=== PATIENT | female | born 2000 | race Caucasian/White ===

== ENCOUNTER 2023-03-28 06:33 | Day surgery (SDC) | payer MEDICAID ==
[2023-03-28 07:15] VITALS: BMI 23.4
[2023-03-28 07:55] LABS: Fetal Membranes Rupture No Membranes Rupture (No Rupture)
[2023-03-28] MEDS ORDERED: hydrALAZINE 20 MG/ML VIAL SLOW IVP PRN (08:20)
[2023-03-28 09:32] LABS: Bilirubin Neg (Negative); Blood, Urine Negative (Negative); Clarity Clear (Clear); Glucose, Urine (Dipstick) Normal (Negative); Ketone, Urine Negative (Negative); Leukocyte Negative (Negative); Nitrite Negative (Negative); Protein, Urine (Dipstick) 15 mg/dl (Neg-Trace); Specific Gravity, Urine 1.015 (1.005-1.030); Urobilinogen Normal mg/dL (Less than 2)
[2023-03-28 09:43] LABS: Bacteria/HPF Rare-Few HPF (None Seen); CAUTI Indications for Culture Pregnancy; RBC/HPF None Seen HPF (0-3); Squamous Epithelial 0-3 HPF (0-3); WBC/HPF 0-3 HPF (0-3)
[2023-03-28 09:45] LABS: Urine Culture Reflex Yes Yes
== END 2023-03-28 09:58 | disposition home or self-care (01) ==
LOC: CSHLD/OP 06:33
PROVIDERS: ATTEND Obstetrics & Gynecology
DX: Z03.71 Encounter for suspected problem with amniotic cavity and membrane ruled out (principal); O99.891 Other specified diseases and conditions complicating pregnancy; R10.30 Lower abdominal pain, unspecified; O23.43 Unspecified infection of urinary tract in pregnancy, third trimester; R35.0 Frequency of micturition; Z3A.29 29 weeks gestation of pregnancy
CPT/HCPCS: 81001; 84112; 87086; 99284

== ENCOUNTER 2023-04-24 20:36 | Day surgery (SDC) | payer MEDICAID, OTHER ==
[2023-04-24 21:23] VITALS: BMI 23.6
[2023-04-24] MEDS ORDERED: hydrALAZINE 20 MG/ML VIAL SLOW IVP PRN (21:29)
[2023-04-24 22:01] LABS: Fetal Membranes Rupture No Membranes Rupture (No Rupture)
[2023-04-24 22:29] LABS: Bilirubin Neg (Negative); Blood, Urine Negative (Negative); Clarity Clear (Clear); Glucose, Urine (Dipstick) Normal (Negative); Ketone, Urine Negative (Negative); Leukocyte Negative (Negative); Nitrite Negative (Negative); Protein, Urine (Dipstick) Negative (Neg-Trace); Specific Gravity, Urine 1.015 (1.005-1.030); Urobilinogen Normal mg/dL (Less than 2); pH, Urine 6.5 (5.0-9.0)
[2023-04-24 22:41] LABS: Bacteria/HPF None Seen HPF (None Seen); CAUTI Indications for Culture Pregnancy; RBC/HPF None Seen HPF (0-3); Squamous Epithelial 0-3 HPF (0-3); WBC/HPF 0-3 HPF (0-3)
[2023-04-24 22:43] LABS: Urine Culture Reflex Yes Yes
== END 2023-04-24 23:58 | disposition home or self-care (01) ==
LOC: CSHLD/OP 20:36
PROVIDERS: ATTEND Emergency Medicine
DX: Z03.71 Encounter for suspected problem with amniotic cavity and membrane ruled out (principal); O99.283 Endocrine, nutritional and metabolic diseases complicating pregnancy, third trimester; E03.9 Hypothyroidism, unspecified; Z3A.34 34 weeks gestation of pregnancy; Z88.8 Allergy status to other drugs, medicaments and biological substances; Z79.890 Hormone replacement therapy
CPT/HCPCS: 81001; 84112; 87086; 87480; 87510; 87660

== ENCOUNTER 2023-05-13 17:40 | Day surgery (SDC) | payer OTHER ==
[2023-05-13] MEDS: Acetaminophen 500 MG TAB PO SCH (20:55)
[2023-05-13 20:59] LABS: ALT (SGPT) 11 U/L (8-55); AST (SGOT) 17 U/L (5-34); Albumin 3.4 g/dL (3.5-5.0); Alkaline Phosphatase 139 U/L (40-100); Anion Gap 13 mmol/L (10-20); BUN (Urea Nitrogen) 7 mg/dL (7.0-18.7); Bilirubin, Total 1.3 mg/dL (0.2-1.2); Calc. Creatinine Clearance 0 mL/min (70-130); Calcium 8.6 mg/dL (7.8-10.44); Carbon Dioxide 20 mmol/L (22-29); Chloride 105 mmol/L (98-107); Estimated GFR 131; Globulin 2.6 g/dL (2.4-3.5); Glucose 77 mg/dL (70-105); Potassium 3.7 mmol/L (3.5-5.1); Sodium 134 mmol/L (136-145)
[2023-05-13 21:11] LABS: #Monocytes 0.9 10x3/uL (0.0-1.1); #Neutrophils 6.6 10x3/uL (1.5-8.4); %Basophils 0.1 % (0.0-2.0); %Eosinophils 0.2 % (0.0-6.0); %Lymphocytes 7.9 % (18.0-47.0); %Monocytes 11.1 % (0.0-10.0); %Neutrophils 79.9 % (40.0-75.0); Hematocrit 30.3 % (34.9-44.5); Hemoglobin 10.4 g/dL (12.0-15.5); Mean Corpuscular HGB CONC 34.3 g/dL (32.0-36.0); Mean Corpuscular Hemoglobin 30.6 pg (27.0-33.0); Mean Corpuscular Volume 89.1 fl (81.6-98.3); Mean Platelet Volume 9.4 fl (7.4-10.4); Platelet Count 205 10x3/uL (150-450); RBC Distribution Width 12.5 % (11.5-14.5); White Blood Cell (WBC) Count 8.3 10x3/uL (3.5-10.5)
[2023-05-13] MEDS: Metoclopramide HCl 10 MG (2 mL) VIAL IVP SCH (21:47)
[2023-05-13] MEDS: diphenhydrAMINE 50 MG/ML VIAL IVP SCH (21:47)
[2023-05-13] MEDS: Lactated Ringer's 1,000 ML IV SCH (21:58)
[2023-05-13] MEDS ORDERED: Promethazine 25 MG TAB PO PRN (23:15)
[2023-05-13] MEDS: Methocarbamol 500 MG TAB PO SCH (23:48)
== END 2023-05-14 01:32 | disposition home or self-care (01) ==
LOC: CSHLD/OP 17:40
PROVIDERS: ATTEND Student in an Organized Health Care Education/Training Program
DX: O36.8130 Decreased fetal movements, third trimester, not applicable or unspecified (principal); O99.283 Endocrine, nutritional and metabolic diseases complicating pregnancy, third trimester; E03.9 Hypothyroidism, unspecified; O99.891 Other specified diseases and conditions complicating pregnancy; R00.0 Tachycardia, unspecified; R51.9 Headache, unspecified; O99.013 Anemia complicating pregnancy, third trimester; Z3A.35 35 weeks gestation of pregnancy; Z88.8 Allergy status to other drugs, medicaments and biological substances; Z79.899 Other long term (current) drug therapy
CPT/HCPCS: 36415; 76815; 76819; 80053; 82247; 83690; 84443; 85025; 96360; 96361; 99282; J1200; J2765

== ENCOUNTER 2023-05-24 20:42 | Day surgery (SDC) | payer MEDICAID, OTHER ==
[2023-05-24 21:00] VITALS: BMI 24.9
[2023-05-24] MEDS ORDERED: Acetaminophen 500 MG TAB PO SCH (22:00)
[2023-05-24 22:12] LABS: Fetal Membranes Rupture No Membranes Rupture (No Rupture)
== END 2023-05-25 00:30 | disposition home or self-care (01) ==
LOC: CSHLD/OP 20:42
PROVIDERS: ATTEND Family Medicine
DX: O47.1 False labor at or after 37 completed weeks of gestation (principal); O99.013 Anemia complicating pregnancy, third trimester; Z03.71 Encounter for suspected problem with amniotic cavity and membrane ruled out; Z3A.38 38 weeks gestation of pregnancy; Z80.3 Family history of malignant neoplasm of breast; Z90.89 Acquired absence of other organs; Z88.8 Allergy status to other drugs, medicaments and biological substances
CPT/HCPCS: 84112; 87480; 87510; 87660; 99285

== ENCOUNTER 2023-06-05 08:01 | Inpatient (IN) | payer OTHER ==
[~2023-06-05 08:01] MED LIST: Bupivacaine 0.25% HCL 30 ML VIAL ONE; Bupivacaine PF 0.5% 30 ML VIAL ONE; ePHEDrine Sulfate 50 MG/10 ML VIAL ONE
[2023-06-05 08:40] VITALS: BMI 25.7
[2023-06-05] MEDS ORDERED: Ondansetron PF 4 MG/2 ML Vial IVP PRN (09:45)
[2023-06-05] MEDS ORDERED: Promethazine HCl 25 MG/ML VIAL IM PRN ×2 (09:45→23:17)
[2023-06-05] MEDS ORDERED: hydrALAZINE 20 MG/ML VIAL SLOW IVP PRN ×2 (09:45)
[2023-06-05] MEDS ORDERED: Oxytocin 30 units/NS 500 ML 500 ML IV SCH ×2 (09:45→11:45)
[2023-06-05 10:09] LABS: Fetal Membranes Rupture RUPTURE DETECTED (No Rupture)
[2023-06-05] MEDS ORDERED: Acetaminophen 500 MG TAB PO PRN (11:42)
[2023-06-05] MEDS ORDERED: Misoprostol 200 MCG TAB PR PRN (11:42)
[2023-06-05] MEDS ORDERED: Lidocaine 1% (PF) 30 ML VIAL SC PRN (11:42)
[2023-06-05] MEDS ORDERED: Carboprost 250 MCG/ML AMP IM PRN (11:42)
[2023-06-05] MEDS ORDERED: Methylergonovine 0.2 MG/ML VIAL IM PRN (11:42)
[2023-06-05] MEDS ORDERED: Tranexamic Acid 1,000 MG/10 ML VIAL IVP PRN (11:42)
[2023-06-05 13:02] LABS: Hematocrit 29.3 % (34.9-44.5); Hemoglobin 10.3 g/dL (12.0-15.5); Mean Corpuscular HGB CONC 35.2 g/dL (32.0-36.0); Mean Corpuscular Hemoglobin 32.1 pg (27.0-33.0); Mean Corpuscular Volume 91.3 fl (81.6-98.3); Mean Platelet Volume 10.2 fl (7.4-10.4); Platelet Count 195 10x3/uL (150-450); RBC Distribution Width 13.1 % (11.5-14.5); Red Blood Cell (RBC) Count 3.21 10x6/uL (3.90-5.03); White Blood Cell (WBC) Count 9.3 10x3/uL (3.5-10.5)
[2023-06-05 13:31] LABS: HBSAg Index 0.27 S/CO (0-0.99); Hep B Surf Ag - L&D Non-Reactive S/CO (NonReactive)
[2023-06-05 13:33] LABS: Syphilis Antibody Nonreactive (Nonreactive); Syphilis Antibody Index 0.06 S/CO (<1.00 Non-Reactive)
[2023-06-05] MEDS: Misoprostol 100 MCG TAB PO SCH ×2 (15:29→19:43)
[2023-06-05] MEDS: fentaNYL 50 mcg/mL 1 mL Vial SLOW IVP PRN (18:10)
[2023-06-05] MEDS: Lactated Ringer's 1,000 ML IV SCH (18:16)
[2023-06-05] MEDS: fentaNYL/Ropivacaine Epidural 100 ML ONE (22:58)
[2023-06-05] MEDS ORDERED: Lactated Ringer's 500 ML IV PRN (23:17)
[2023-06-05] MEDS ORDERED: Moisturizing Cream (Eucerin) 113 GM JAR TOP PRN (23:17)
[2023-06-05] MEDS ORDERED: diphenhydrAMINE 50 MG/ML VIAL IVP PRN (23:17)
[2023-06-05] MEDS ORDERED: Naloxone HCl 0.4 mg/ml Vial IVP PRN ×2 (23:17)
[2023-06-05] MEDS ORDERED: fentaNYL 2 mcg/Ropivacaine 0.2% Epidural 100 ML CADD EPIDURAL SCH (23:30)
[2023-06-05] MEDS ORDERED: Communication Order-Pharmacy FS SCH (23:30)
[2023-06-06] MEDS: Oxytocin 30 units/NS 500 ML 500 ML IV SCH (03:10)
[2023-06-06] MEDS: ePHEDrine Sulfate 50 MG/10 ML VIAL SLOW IVP PRN (04:46)
[2023-06-06] MEDS: Ondansetron PF 4 MG/2 ML Vial IVP PRN (07:24)
[2023-06-06] MEDS ORDERED: Calcium Carbonate 500 MG ChewTAB PO PRN (07:50)
[2023-06-06] MEDS: Dextrose 5%-Lactated Ringers 1,000 ML IV SCH (12:29)
[2023-06-06] MEDS ORDERED: Bisacodyl 10 MG SUPP PR PRN (23:31)
[2023-06-06] MEDS ORDERED: Methylergonovine 0.2 MG/ML VIAL IM PRN (23:31)
[2023-06-06] MEDS ORDERED: Milk Of Magnesia 30 ML UDCUP PO PRN (23:31)
[2023-06-06] MEDS ORDERED: hydrALAZINE 20 MG/ML VIAL SLOW IVP PRN (23:31)
[2023-06-06] MEDS ORDERED: Ondansetron PF 4 MG/2 ML Vial IVP PRN (23:31)
[2023-06-06] MEDS ORDERED: Misoprostol 200 MCG TAB VAG PRN (23:31)
[2023-06-06] MEDS ORDERED: Promethazine HCl 25 MG/ML VIAL IM PRN (23:31)
[2023-06-06] MEDS ORDERED: diphenhydrAMINE 25 MG CAP PO PRN (23:31)
[2023-06-06] MEDS ORDERED: Lanolin Ointment 7 GM TUBE TOP PRN (23:31)
[2023-06-06] MEDS ORDERED: Oxytocin 30 units/NS 500 ML 500 ML IV SCH (23:31)
[2023-06-07] MEDS: Lactated Ringer's 500 ML IV SCH (01:06)
[2023-06-07] MEDS: Dexmedetomidine 200 MCG/2 ML VIAL ONE (01:06)
[2023-06-07] MEDS: Methylergonovine 0.2 MG/ML VIAL ONE (01:06)
[2023-06-07] MEDS: Misoprostol 200 MCG TAB ONE (01:06)
[2023-06-07] MEDS: Tranexamic Acid 1,000 MG/10 ML VIAL ONE (01:06)
[2023-06-07] MEDS: Lidocaine 1% (PF) 30 ML VIAL ONE (01:07)
[2023-06-07] MEDS: Oxytocin 30 units/NS 500 ML 500 ML ONE (01:07)
[2023-06-07] MEDS: Acetaminophen 500 MG TAB PO SCH (01:33)
[2023-06-07] MEDS: Ibuprofen 800 MG TAB PO SCH ×2 (01:34→09:24)
[2023-06-07] MEDS ORDERED: Ibuprofen 800 MG TAB PO SCH (06:00)
[2023-06-07] MEDS ORDERED: Acetaminophen 500 MG TAB PO SCH ×2 (06:00→09:00)
[2023-06-07] MEDS: Benzocaine-Menthol 82.5 ML CAN TOP PRN (06:32)
[2023-06-07] MEDS: Boostrix 0.5 ML (Tdap) VIAL (>/=7 yrs of age) IM ONE (07:29)
[2023-06-07] MEDS: Ferrous Sulfate 325 MG TAB PO SCH (07:29)
[2023-06-07] MEDS: Prenatal Vitamin 1 TAB PO SCH (09:20)
[2023-06-07] MEDS: Docusate 100 MG CAP PO SCH (09:20)
[2023-06-08] MEDS: Acetaminophen 325 MG TAB PO PRN (02:28)
[2023-06-08 08:16] VITALS: BP 126/82; TEMP 98.2
[2023-06-08] MEDS: Polyethylene Glycol 3350 17 GM Packet PO SCH (09:28)
== END 2023-06-08 13:55 | disposition home or self-care (01) | DRG 807 ==
LOC: CSHLD/OP 08:01 → CSHLD 10:53 → CSHPED 06-07 00:40
PROVIDERS: ADMIT Student in an Organized Health Care Education/Training Program; ATTEND Student in an Organized Health Care Education/Training Program
PROC: 10E0XZZ Delivery of Products of Conception, External Approach (ICD-10-PCS; principal; 2023-06-06)
PROC: 0UQGXZZ Repair Vagina, External Approach (ICD-10-PCS; 2023-06-06)
PROC: 10H07YZ Insertion of Other Device into Products of Conception, Via Natural or Artificial Opening (ICD-10-PCS; 2023-06-06)
DX: O42.02 Full-term premature rupture of membranes, onset of labor within 24 hours of rupture (principal); Z37.0 Single live birth; Z3A.39 39 weeks gestation of pregnancy; O70.1 Second degree perineal laceration during delivery; O99.284 Endocrine, nutritional and metabolic diseases complicating childbirth; E03.8 Other specified hypothyroidism; O99.02 Anemia complicating childbirth; D64.9 Anemia, unspecified
CPT/HCPCS: 36415; 84112; 84443; 85027; 86780; 86850; 86900; 86901; 87340; J0665; J2405; J2590; J3010; J7120